=== PATIENT | female | born 1975 | race Caucasian/White ===

== ENCOUNTER → 2017-02-06 | Outpatient (CLI) | payer BC ==
--- NOTE | 2017-02-06 08:52 | USB ---
EXAMINATION TYPE: US breast complete LT DATE OF EXAM: 02/06/2017 8:35 AM COMPARISON: Bilateral mammogram done the same date 02/06/2017. CLINICAL HISTORY: N64.4 Mastodynia. Left breast ultrasound was performed in the patient's area of pain within all 4 quadrants. No suspici ous abnormality is seen. No focal cystic or solid masses present. No gross evidence of subcutaneous e quynh or skin thickening. No finding to correlate with the patient's pain. IMPRESSION: Unremarkable left breast ultrasound with no finding to correlate with the patient's pain . Clinical management is recommended for the left-sided mastodynia.
--- NOTE | 2017-02-06 11:33 | MM ---
Reason for exam: clinical finding. Baseline mammogram. Physical Findings: Nurse did not find any significant physical abnormalities on exam. [facility] Diagnostic Mammo w CAD GINA Bilateral CC and MLO view(s) were taken. ML, spot compression MLO, and spot compression CC view(s) were taken of the right breast. There are scattered fibroglandular densities. Finding: There are typically benign diffuse/scattered calcifications in both breasts. There is a focal asymmetry measuring 2.7cm in the right upper outer quadrant that resolves on spot compression and ML views. These results were verbally communicated with the patient and result sheet given to the patient on 02/06/17. ASSESSMENT: Benign, BI-RAD 2 Left breast is negative, BI-RAD 1. Benign, BI-RAD 2 finding in the right breast. RECOMMENDATION: Routine screening mammogram of both breasts in 1 year. Manage on a clinical basis with regard to left breast pain.
== END | disposition home or self-care (01) ==
LOC: RADMAMWWP 07:50
PROVIDERS: ATTEND Family Medicine
DX: N64.4 Mastodynia (principal)
CPT/HCPCS: 76641; G0204